=== PATIENT | female | born 1990 | race Two or more races ===

== ENCOUNTER 2024-03-22 01:27 | Emergency (ER) | payer BC, SELFPAY ==
[2024-03-22] VITALS (7 sets, daily range): BP systolic 111–123; BP diastolic 66–79; PULSE 92–116; RESP 14–18; TEMP 36.9–37.3; O2SAT 98–100; BMI 35.6
--- NOTE | 2024-03-22 01:39 | EKG_ITS ---
[facility] Test Date: 2024-03-22 Pat Name: HADLEY LOPEZ Department: Room: - Gender: Female Pension Agent: : 1990 Requested By: Dwight Leigh Order Number: [id number] Reading MD: Dwight Leigh Measurements Intervals Wells Rate: 109 P: 58 VA: 129 QRS: 67 QRSD: 90 T: 14 QT: 325 QTc: 439 Interpretive Statements SINUS TACHYCARDIA POSSIBLE LEFT ATRIAL ENLARGEMENT [-0.1mV P WAVE IN V1/V2] NONSPECIFIC ST & T-WAVE ABNORMALITY ABNORMAL RHYTHM ECG Compared to ECG 05/17/2023 11:30:41 T-wave abnormality now present Sinus rhythm no longer present /store/S0/[id number]/ecg/[id number].pdf
[2024-03-22 02:50] LABS: Collection Type, Urine Clean Catch
[2024-03-22 02:54] LABS: Bilirubin,Urine Negative (Negative); Blood,Urine Negative (Negative); Clarity,Urine Clear (Clear/Hazy); Color,Urine Lt-Yellow (Lt Yel-Yel); Glucose, Urine Negative (Negative); Ketones,Urine Negative (Negative); Leukocyte Esterase,Urine Negative (Negative); Nitrite,Urine Negative (Negative); PH,Urine 6.5 (5.0-7.0); Protein,Urine Negative (Neg - Trace); RBC,Urine 1 /hpf (0-3); Specific Gravity,Urine 1.012 (1.001-1.035); Squamous Epithelial Cell,Urine < 1 /hpf (0-5); Urobilinogen,Urine Negative mg/dL (0.0-1.0); WBC,Urine 1 /hpf (0-5)
[2024-03-22 03:01] LABS: Amphetamine/Methamp Scrn,U Negative (Negative); Barbiturate Screen,Urine Negative (Negative); Benzodiazepines Screen,Urine Negative (Negative); Benzoylecgonine Screen, Ur Negative (Negative); Fentanyl Screen,Urine Negative (Negative); Opiate Screen,Urine Negative (Negative); THC Screen,Urine Negative (Negative)
[2024-03-22 03:02] LABS: Basophils # (Auto) 0.1 Thou/mm3 (0.0-0.2); Basophils % (Auto) 0 % (0-2.5); Eosinophils # (Auto) 0.2 Thou/mm3 (0.0-0.5); Eosinophils % (Auto) 1 % (0-10); Hematocrit 36.3 % (36.0-46.0); Hemoglobin 12.4 g/dL (12.0-16.0); Immature Granulocytes % (Auto) 1 % (0-0); Lymphocytes % (Auto) 21 % (10-50); Mean Corpuscular HGB Conc 34.2 g/dl (31.0-37.0); Mean Corpuscular Hemoglobin 29.2 pg (25.0-35.0); Mean Corpuscular Volume 85 fL (80-100); Monocytes # (Auto) 0.8 Thou/mm3 (0.0-0.8); Monocytes % (Auto) 6 % (0-12); Neutrophils # (Auto) 10.2 Thou/mm3 (1.8-7.7); Neutrophils % (Auto) 71 % (37-80); Nucleated Red Blood Cell % 0 /100 WBC (0); Platelet Count 229 Thou/mm3 (140-440); Red Blood Count 4.25 Miln/mm3 (4.00-5.20); White Blood Count 14.3 Thou/mm3 (3.6-11.0)
[2024-03-22 03:22] LABS: Alanine Aminotransferase 12 U/L (10-49); Albumin, Serum 4.4 gm/dL (3.5-5.0); Albumin/Globulin Ratio 1.6 (1.2-2.2); Alkaline Phosphatase 73 U/L (46-116); Anion Gap 11 (7-16); Aspartate Amino Transferase 15 U/L (0-34); BUN/Creatinine Ratio 14 Ratio (12-20); Bilirubin,Total 0.3 mg/dL (0.3-1.2); Blood Urea Nitrogen 13 mg/dL (9-23); Calcium 9.8 mg/dL (8.3-10.6); Calcium (Corrected) 9.8 mg/dL (8.5-10.1); Carbon Dioxide 22.1 mMol/L (20.0-31.0); Chloride 106 mMol/L (98-107); Creatinine (Component) 0.9 mg/dL (0.6-1.3); Estimated Creatinine Clearance 92.7 mL/min (>60); Globulin 2.7 gm/dL (2.3-3.5); Glucose 103 mg/dL (74-106); Osmolality,Calculated 277 (275-295); Potassium 3.6 mMol/L (3.4-5.1); Sodium 139 mMol/L (136-145); Total Protein 7.1 gm/dL (5.7-8.2); Troponin I < 0.002 ng/mL (0.0-0.045); eGFR > 60 See Note
--- NOTE | 2024-03-22 03:41 | PD.EDRME ---
Rapid Medical Screening Exam RME Arrival date/time: 03/22/24 01:27 33F with no significant PMH presents to ED with several hours of weakness/fatigue and HR going to 170s w/o trigger. Patient is currently 6 weeks , but denies ab pain and vaginal bleeding, as well as anxiety/panic attacks and drug/alcohol use. Chief Complaint: Anxiety Time Seen by Provider: 03/22/24 02:30 Vital signs: Vital Signs Temperature 98.5 F 03/22/24 01:29 Pulse Rate 116 H 03/22/24 01:29 Respiratory Rate 17 03/22/24 01:29 Blood Pressure 112/66 03/22/24 01:29 Pulse Oximetry (%) 100 03/22/24 01:29 Oxygen Delivery Method Room Air 03/22/24 01:29
[2024-03-22 06:52] LABS: Troponin I < 0.002 ng/mL (0.0-0.045)
--- NOTE | 2024-03-22 07:04 | PD.EDARRY ---
ED Arrhythmia Palp. RME/HPI General Chief Complaint: Anxiety Stated Complaint: ANXIETY/WEAKNESS Time Seen by Provider: 03/22/24 02:30 Arrival date/time: 03/22/24 01:27 RME / HPI RME / HPI narrative: 03/22/24 01:27 33F with no significant PMH presents to ED with several hours of weakness/fatigue and HR going to 170s w/o trigger. Patient is currently 6 weeks , but denies ab pain and vaginal bleeding, as well as anxiety/panic attacks and drug/alcohol use. This section includes all my notes and documentations, including HPI, PE, MDM, Procedure Notes, and PLAN. 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 States yesterday she was feeling very fatigued, winded , and unwell . Last night was in and out of sleep. This morning woke up with a pounding sensation in her chest and per her apple watch, her heart rate was 170's which prompted her to call 911. State when medics arrived her heart rate had improved. Patient additionally reports abdominal cramping, on/off over the last several weeks. Denies vaginal bleeding. No other complaints. LMP 02/11/24 ROS: Respiratory: negative except as documented in HPI. Gastrointestinal: negative except as documented in HPI. Genitourinary: negative except as documented in HPI. Musculoskeletal: negative except as documented in HPI. Skin: negative except as documented in HPI. Neurological: negative except as documented in HPI. Physical Exam: General: Alert and oriented. No acute distress. Eyes: Conjunctivae and lids clear. ENT: No nasal congestion. Neck: Supple. Heart: RRR. Lungs: No respiratory distress. Good air movement. No rhonchi, wheezing, rales. Abdomen: Soft and nontender. Normal bowel sounds. No distension. No rebound or guarding. Back: No CVA tenderness. Skin: Warm and dry. Neuro: Alert and oriented X 3. I reviewed EMS notes. I reviewed all diagnostic test results. My interpretation of the EKG is sinus rhythm with nonspecific ST-T changes. My review of the ultrasound report is no obvious IUP. Blood tests and urine tests unremarkable. At this point, diagnoses include palpitations and threatened AB. Recommended expectant management and recheck with PCP. Based on my best medical judgment, made decision no further evaluation or treatment indicated at this time. Patient understands and agrees to the discharge instructions customized and printed, see below. Discharge Instructions from Dr. Rao: 1.? ? ? After extensive evaluation, the exact cause of your palpitation was not determined. But there is no emergency, such as heart attack or electrolyte abnormalities or thyroid problem. 2.? ? ? Based on your last menstruation of 02/11/24, today's gestational age is 5 5/7 weeks. But the ultrasound didn't show a in the uterus. You may be too early for the ultrasound to show the . Or you may be having a miscarriage. 3.? ? ? Only time will determine whether you will have a successful or you will have a miscarriage.? If your symptoms worsen and start bleeding, you may have a miscarriage.? If you have a miscarriage, unfortunately we won?t be able to save the baby because it?s too early.? Under 20 weeks, unfortunately we can?t help.?? 4.? ? ? See a private doctor on 03/25/24.? No sexual activity until cleared by a doctor taking care of you.?? Ask to repeat hCG. This doubles every 2 to 3 days in normal . Your level today was 5977. Ask to repeat ultrasound in 2 weeks. 5.? ? ? Seek immediate medical care for severe bleeding (soaking more than 3 pads per hour), intolerable pain, or with any concerns.? Russel Rao MD Related Data Previous Rx's ?Medication ?Instructions ?Recorded acetaminophen 500 mg tablet 1,000 mg (2 x 500 mg) PO Q6H PRN 04/10/22 (Tylenol Extra Strength) fever or pain #30 tabs pantoprazole 40 mg granules 40 mg PO QDAY #14 ea 07/24/22 delayed-release for susp in packet (Protonix) meloxicam 7.5 mg tablet 7.5 mg PO QDAY #14 tabs 05/17/23 Allergies Allergy/AdvReac Type Severity Reaction Status Date / Time No Known Allergies Allergy Verified 03/22/24 01:37 Review of Systems Review of Systems Systems Reviewed: All systems reviewed, normal except as documented Past Medical History Past Medical History NEUROLOGIC: Positive Neurological Disorders GENITOURINARY: Positive Genitourinary Disorders, Renal Disease and Kidney Stones REPRODUCTIVE: Positive Previous Pregnancies MUSCULOSKELETAL: Positive Fibromyalgia PSYCHO/SOCIAL: Positive Psychiatric Problems and Anxiety OTHER HISTORY: Positive Chicken Pox Family History FAMILY HISTORY: Positive Family Cardiac Disorders Surgical History SURGICAL: Positive Abdominal Surgery; Negative Section Social History SMOKING STATUS: Never smoker SECOND HAND EXPOSURE: No SUBSTANCE USE: does not use ED Exam Narrative Physical exam: As noted in HPI Course Quality Measures none Orders Category Date Time Status EKG (ED ONLY) *Do not use* NOW Care 03/22/24 01:39 Completed EKG (ED Only) Stat Exams 03/22/24 01:39 Draft US OB <= 14 weeks fetus Stat Exams 03/22/24 07:03 Ordered CBC Stat Lab 03/22/24 02:34 Completed CMP [Comprehensive Metabolic Panel] Stat Lab 03/22/24 02:34 Completed Drug Screen,Urine Stat Lab 03/22/24 02:40 Completed Magnesium Stat Lab 03/22/24 07:03 Ordered TSH [Thyroid Stimulating Hormone] Stat Lab 03/22/24 07:03 Ordered Troponin I Stat Lab 03/22/24 02:34 Completed Troponin I Stat Lab 03/22/24 06:10 Completed Troponin I Stat Lab 03/22/24 07:03 Ordered Urinalysis Stat Lab 03/22/24 02:40 Completed Urine Culture Stat Lab 03/22/24 02:40 Stop Req Vital Signs Vital signs: Vital Signs Temperature 98.5 F 03/22/24 01:29 Pulse Rate 116 H 03/22/24 01:29 Respiratory Rate 17 03/22/24 01:29 Blood Pressure 112/66 03/22/24 01:29 Pulse Oximetry (%) 100 03/22/24 01:29 Oxygen Delivery Method Room Air 03/22/24 01:29 Arrhythmia/Palpitations MDM Narrative MDM Narrative:: Cailin Gan am scribing for and in the presence of Dr. Rao. Patient data External records reviewed:: [facility] previous records (I reviewed ED visit on 05/17/2023) and EMS form Clinical information provided by:: patient Social determinants that could affect healthcare access:: none Patient has the following chronic illnesses:: Previous pregnancies How is presenting disease/condition affected by chronic disease/condition?: uneffected by Evaluation data The following diagnostics were reviewed and interpreted by me:: lab results and EKG tracing(s) Lab and/or radiology exams considered but not ordered:: None Interpretation Summary: Ordering Physician: Russel Rao MD Date of Service: 03/22/24 Procedure(s): US OB <= 14 weeks fetus Accession Number(s): [id number] cc: Russel Rao MD; Duy Ann MD; Piero Kearney MD~ Examination: Complete OB ultrasound, less than 14 weeks, transabdominal Date and time of exam: March 22, 2024 0837 hours INDICATIONS: Increasing maternal heart rate today Technique: Obstetrical ultrasound images less than 14 weeks performed via transabdominal imaging Findings: Uterus 10.5 x 5.8 x 7.3 cm No uterine mass or intrauterine gestation Endometrial stripe 0.8 cm Right ovary 3.7 x 2.6 x 3.3 cm arterial flow Left ovary 3.9 x 2.8 x 2.9 cm arterial flow IMPRESSION: No uterine mass or intrauterine gestation Dictated By: Duy Ann MD Signed By: <Electronically signed by Duy Ann MD in OV> 03/22/24 0915 Medications / Prescriptions Medications or Prescriptions considered but not ordered:: None Medication administrations:: None Consultations Consultation(s) initiated? (list below): No Diagnosis Differential diagnosis arrhythmia/palpitations: palpitations, anxiety, sinus tachycardia, artial fibrillation, artial flutter, ventricular premature beats, supraventricular tachycardia and ventricular tachycardia Most likely diagnosis given after review of the tests above:: Heart palpitations Admission Indicated Admission indicated?: not indicated Explain why admission is indicated or not indicated:: Does not meet admission criteria. Admission Request Was there a request for admission?: No Disposition Plan Disposition Plan: Discharge Discharge Attestation Discharge Attestation: The patient and all family members were given an opportunity to ask questions and understood the discharge instructions. Discharge instructions specifically effects, indications for sooner follow up or return to the emergency department, and the expected course of current diagnosis. Patient condition: Stable Discharge Plan Plan Patient Disposition: HOME (Self Care) Prescriptions/Referrals Prescriptions/Med Rec: No Action pantoprazole [Protonix] [address] for susp in packet 40 mg PO QDAY Qty: 14 0RF meloxicam 7.5 mg tablet 7.5 mg PO QDAY Qty: 14 0RF acetaminophen [Tylenol Extra Strength] 500 mg tablet 1,000 mg PO Q6H PRN (Reason: fever or pain) Qty: 30 0RF Referrals: Piero Kearney MD [Primary Care Provider] - In 1 week Problem List Clinical Impression: , Heart palpitations Patient/Caregiver Discharge Instructions Discharge Activity: activity as tolerated Education Materials: ED Possible Miscarriage ..., ED Palpitations Additional Instructions: Discharge Instructions from Dr. Rao: 1.? ? ? After extensive evaluation, the exact cause of your palpitation was not determined. But there is no emergency, such as heart attack or electrolyte abnormalities or thyroid problem. 2.? ? ? Based on your last menstruation of 02/11/24, today's gestational age is 5 5/7 weeks. But the ultrasound didn't show a in the uterus. You may be too early for the ultrasound to show the . Or you may be having a miscarriage. 3.? ? ? Only time will determine whether you will have a successful or you will have a miscarriage.? If your symptoms worsen and start bleeding, you may have a miscarriage.? If you have a miscarriage, unfortunately we won?t be able to save the baby because it?s too early.? Under 20 weeks, unfortunately we can?t help.?? 4.? ? ? See a private doctor on 03/25/24.? No sexual activity until cleared by a doctor taking care of you.?? Ask to repeat hCG. This doubles every 2 to 3 days in normal . Your level today was 5977. Ask to repeat ultrasound in 2 weeks. 5.? ? ? Seek immediate medical care for severe bleeding (soaking more than 3 pads per hour), intolerable pain, or with any concerns.? Print Language: Khmer Stand Alone Forms: Tara Award Info., Patient Portal Info Letter
[2024-03-22 07:39] LABS: Magnesium 1.9 mg/dL (1.6-2.6); Thyroid Stimulating Hormone 1.49 uIU/mL (0.55-4.78)
--- NOTE | 2024-03-22 07:54 | PC.NURSE ---
Provided po fluids for patient to fill bladder for Ultrasound.
--- NOTE | 2024-03-22 08:36 | PC.NURSE ---
Patient to Ultrasound via wheelchair.
[2024-03-22 10:23] LABS: Beta HCG,Quantitative 5977 mIU/mL (<5.0)
== END 2024-03-22 11:07 | disposition home or self-care (01) ==
PROVIDERS: Physician Assistant; Emergency Provider Emergency Medicine; PCP Family Medicine
DX: O26.891 Other specified pregnancy related conditions, first trimester (principal); R00.2 Palpitations; R00.0 Tachycardia, unspecified; Z3A.01 Less than 8 weeks gestation of pregnancy
CPT/HCPCS: 36415; 76801; 80053; 80307; 81001; 83735; 84443; 84484; 84702; 85025; 87086; 93005; 99284

== ENCOUNTER → 2024-04-20 | Outpatient (CLI) | payer BC, SELFPAY ==
[2024-04-20 15:43] LABS: BVAG Candida Negative (Negative); Bacterial Vaginosis Markers Negative (Negative); Candida glabrata Negative (Negative); Candida krusei PCR Negative (Negative); Trichomonas Negative (Negative)
== END | disposition home or self-care (01) ==
LOC: SLDO 11:16
PROVIDERS: Referring Provider Specialist; Visit Provider Specialist
DX: B37.89 Other sites of candidiasis (principal); N76.0 Acute vaginitis; A59.01 Trichomonal vulvovaginitis
CPT/HCPCS: 81514

== ENCOUNTER → 2024-04-24 | Outpatient (CLI) | payer BC, SELFPAY ==
[2024-04-24 15:00] LABS: Basophils # (Auto) 0.1 Thou/mm3 (0.0-0.2); Basophils % (Auto) 0 % (0-2.5); Eosinophils # (Auto) 0.1 Thou/mm3 (0.0-0.5); Eosinophils % (Auto) 1 % (0-10); Hematocrit 35.8 % (36.0-46.0); Hemoglobin 12.1 g/dL (12.0-16.0); Immature Granulocytes % (Auto) 1 % (0-0); Immature Granulocytes Auto 0.07 Thou/mm3 (0.00-0.00); Lymphocytes # (Auto) 2.3 Thou/mm3 (1.0-4.8); Lymphocytes % (Auto) 18 % (10-50); Mean Corpuscular HGB Conc 33.8 g/dl (31.0-37.0); Mean Corpuscular Hemoglobin 29.2 pg (25.0-35.0); Mean Corpuscular Volume 87 fL (80-100); Monocytes # (Auto) 0.7 Thou/mm3 (0.0-0.8); Monocytes % (Auto) 6 % (0-12); Neutrophils # (Auto) 9.6 Thou/mm3 (1.8-7.7); Neutrophils % (Auto) 75 % (37-80); Nucleated Red Blood Cell % 0 /100 WBC (0); Platelet Count 269 Thou/mm3 (140-440); RDW Standard Deviation 40.9 fL (36.4-46.3); Red Blood Count 4.14 Miln/mm3 (4.00-5.20); White Blood Count 12.8 Thou/mm3 (3.6-11.0)
[2024-04-24 15:12] LABS: Glucose Estimated Average 94 mg/dL (80-131); Hemoglobin A1C 4.9 % Hgb (4.8-6.0)
[2024-04-24 15:42] LABS: HIV (1&2) Antibody Rapid Non-Reactive
[2024-04-24 18:27] LABS: Creatinine (Component) 0.6 mg/dL (0.6-1.3); Glucose 84 mg/dL (74-106); eGFR > 60 See Note
[2024-04-24 18:43] LABS: Hepatitis B Surface Antigen Non Reactive (Non React); Rubella, IgG Antibody Reactive (Immune)
[2024-04-24 19:05] LABS: Beta HCG,Quantitative 91934 mIU/mL (<5.0)
[2024-04-27 17:51] LABS: HCV RNA, PCR <15 NOT DETECTED IU/mL
[2024-04-28 07:04] LABS: HCV RNA, PCR Log IU <1.18 NOT DETECTED Log IU/mL
== END | disposition home or self-care (01) ==
LOC: COPL 13:54
PROVIDERS: PCP Physician Assistant; Referring Provider Specialist; Visit Provider Specialist
DX: Z34.81 Encounter for supervision of other normal pregnancy, first trimester (principal)
CPT/HCPCS: 36415; 81220; 82565; 82947; 83036; 84702; 85025; 86703; 86762; 86850; 86900; 86901; 87340; 87522

== ENCOUNTER → 2024-04-24 | Outpatient (CLI) | payer BC, SELFPAY ==
[2024-04-24 17:00] LABS: Collection Type, Urine Clean Catch; WBC,Urine 0 /hpf (0-5)
[2024-04-24 17:44] LABS: Bacteria,Urine Rare; Bilirubin,Urine Negative (Negative); Blood,Urine Negative (Negative); Clarity,Urine Clear (Clear/Hazy); Color,Urine Colorless (Lt Yel-Yel); Glucose, Urine Negative (Negative); Ketones,Urine Negative (Negative); Leukocyte Esterase,Urine Negative (Negative); Nitrite,Urine Negative (Negative); PH,Urine 6.5 (5.0-7.0); Protein,Urine Negative (Neg - Trace); RBC,Urine < 1 /hpf (0-3); Specific Gravity,Urine 1.008 (1.001-1.035); Squamous Epithelial Cell,Urine < 1 /hpf (0-5); Urobilinogen,Urine Negative mg/dL (0.0-1.0)
[2024-04-24 17:55] LABS: Amphetamine/Methamp Scrn,U Negative (Negative); Barbiturate Screen,Urine Negative (Negative); Benzodiazepines Screen,Urine Negative (Negative); Benzoylecgonine Screen, Ur Negative (Negative); Fentanyl Screen,Urine Negative (Negative); Opiate Screen,Urine Negative (Negative); THC Screen,Urine Negative (Negative)
== END | disposition home or self-care (01) ==
LOC: SLDO 16:49
PROVIDERS: Referring Provider Specialist; Visit Provider Specialist
DX: Z34.81 Encounter for supervision of other normal pregnancy, first trimester (principal)
CPT/HCPCS: 80307; 81001; 87086

== ENCOUNTER → 2024-04-26 | Outpatient (CLI) | payer BC, SELFPAY ==
[2024-04-26 07:50] LABS: Quantiferon-TB* See Sep Rpt
== END | disposition home or self-care (01) ==
PROVIDERS: Referring Provider Specialist; Visit Provider Specialist
DX: Z34.81 Encounter for supervision of other normal pregnancy, first trimester (principal)
CPT/HCPCS: 86480

== ENCOUNTER → 2024-06-12 | Outpatient (CLI) | payer BC, SELFPAY ==
[2024-06-12 10:26] LABS: Basophils # (Auto) 0.1 Thou/mm3 (0.0-0.2); Basophils % (Auto) 0 % (0-2.5); Eosinophils # (Auto) 0.1 Thou/mm3 (0.0-0.5); Eosinophils % (Auto) 1 % (0-10); Hematocrit 32.8 % (36.0-46.0); Hemoglobin 11.1 g/dL (12.0-16.0); Immature Granulocytes % (Auto) 1 % (0-0); Immature Granulocytes Auto 0.14 Thou/mm3 (0.00-0.00); Lymphocytes # (Auto) 2.1 Thou/mm3 (1.0-4.8); Lymphocytes % (Auto) 18 % (10-50); Mean Corpuscular HGB Conc 33.8 g/dl (31.0-37.0); Mean Corpuscular Hemoglobin 29.2 pg (25.0-35.0); Mean Corpuscular Volume 86 fL (80-100); Monocytes # (Auto) 0.7 Thou/mm3 (0.0-0.8); Monocytes % (Auto) 6 % (0-12); Neutrophils % (Auto) 74 % (37-80); Nucleated Red Blood Cell % 0 /100 WBC (0); Platelet Count 265 Thou/mm3 (140-440); White Blood Count 12.1 Thou/mm3 (3.6-11.0)
[2024-06-12 10:56] LABS: Alanine Aminotransferase 13 U/L (10-49); Albumin, Serum 4.2 gm/dL (3.5-5.0); Albumin/Globulin Ratio 2.1 (1.2-2.2); Alkaline Phosphatase 58 U/L (46-116); Anion Gap 9 (7-16); Aspartate Amino Transferase 13 U/L (0-34); BUN/Creatinine Ratio 24 Ratio (12-20); Bilirubin,Total 0.3 mg/dL (0.3-1.2); Blood Urea Nitrogen 12 mg/dL (9-23); Calcium 9.3 mg/dL (8.3-10.6); Calcium (Corrected) 9.3 mg/dL (8.5-10.1); Carbon Dioxide 23.3 mMol/L (20.0-31.0); Chloride 107 mMol/L (98-107); Creatinine (Component) 0.5 mg/dL (0.6-1.3); Glucose 91 mg/dL (74-106); Osmolality,Calculated 277 (275-295); Potassium 4.6 mMol/L (3.4-5.1); Sodium 139 mMol/L (136-145); Total Protein 6.2 gm/dL (5.7-8.2); eGFR > 60 See Note
[2024-06-12 11:18] LABS: Folate > 24.00 ng/mL (>5.38); Vitamin B12 332 pg/mL (211-911); Vitamin D 25 Hydroxy Total 15.6 ng/mL (7.3-40.2)
[2024-06-19 07:03] LABS: Vitamin B1 (Thiamine)* 13 nmol/L (8-30)
== END | disposition home or self-care (01) ==
PROVIDERS: Referring Provider Physician Assistant Medical; Visit Provider Physician Assistant Medical
DX: E55.9 Vitamin D deficiency, unspecified (principal); M79.18 Myalgia, other site; R76.8 Other specified abnormal immunological findings in serum
CPT/HCPCS: 36415; 80053; 82306; 82607; 82746; 84425; 85025

== ENCOUNTER → 2024-06-14 | Outpatient (CLI) | payer BC, SELFPAY ==
[2024-06-14 10:37] LABS: Basophils % (Auto) 0 % (0-2.5); Eosinophils # (Auto) 0.1 Thou/mm3 (0.0-0.5); Eosinophils % (Auto) 1 % (0-10); Hematocrit 33.5 % (36.0-46.0); Hemoglobin 11.4 g/dL (12.0-16.0); Immature Granulocytes % (Auto) 1 % (0-0); Immature Granulocytes Auto 0.13 Thou/mm3 (0.00-0.00); Lymphocytes # (Auto) 2.1 Thou/mm3 (1.0-4.8); Lymphocytes % (Auto) 19 % (10-50); Mean Corpuscular Hemoglobin 29.2 pg (25.0-35.0); Mean Corpuscular Volume 86 fL (80-100); Monocytes # (Auto) 0.6 Thou/mm3 (0.0-0.8); Monocytes % (Auto) 5 % (0-12); Neutrophils # (Auto) 8.4 Thou/mm3 (1.8-7.7); Neutrophils % (Auto) 74 % (37-80); Nucleated Red Blood Cell % 0 /100 WBC (0); Platelet Count 271 Thou/mm3 (140-440); RDW Standard Deviation 41.9 fL (36.4-46.3); Red Blood Count 3.91 Miln/mm3 (4.00-5.20); White Blood Count 11.4 Thou/mm3 (3.6-11.0)
[2024-06-14 11:25] LABS: Alanine Aminotransferase 11 U/L (10-49); Albumin, Serum 3.9 gm/dL (3.5-5.0); Alkaline Phosphatase 55 U/L (46-116); Anion Gap 10 (7-16); Aspartate Amino Transferase 12 U/L (0-34); BUN/Creatinine Ratio 13 Ratio (12-20); Bilirubin,Direct < 0.1 mg/dL (0.0-0.3); Bilirubin,Total 0.3 mg/dL (0.3-1.2); Blood Urea Nitrogen 8 mg/dL (9-23); Calcium 9.1 mg/dL (8.3-10.6); Carbon Dioxide 23.1 mMol/L (20.0-31.0); Chloride 107 mMol/L (98-107); Cholesterol 176 mg/dL (132-200); Creatinine (Component) 0.6 mg/dL (0.6-1.3); Glucose 89 mg/dL (74-106); HDL Cholesterol 86 mg/dL (40-60); LDL Cholesterol,Calculated 65 mg/dL (0-130); Osmolality,Calculated 276 (275-295); Potassium 4.7 mMol/L (3.4-5.1); Sodium 140 mMol/L (136-145); Thyroid Stimulating Hormone 0.81 uIU/mL (0.55-4.78); Triglycerides 124 mg/dL (30-150); eGFR > 60 See Note
== END | disposition home or self-care (01) ==
LOC: COPL 09:48
PROVIDERS: PCP Internal Medicine; Referring Provider Internal Medicine Cardiovascular Disease; Visit Provider Internal Medicine Cardiovascular Disease
DX: I10 Essential (primary) hypertension (principal); E78.2 Mixed hyperlipidemia; I49.9 Cardiac arrhythmia, unspecified
CPT/HCPCS: 36415; 80048; 80061; 80076; 84439; 84443; 85025

== ENCOUNTER → 2024-07-31 | Outpatient (CLI) | payer BC, SELFPAY ==
[2024-07-31 12:09] LABS: Basophils % (Auto) 0 % (0-2.5); Eosinophils # (Auto) 0.1 Thou/mm3 (0.0-0.5); Eosinophils % (Auto) 1 % (0-10); Hematocrit 32.7 % (36.0-46.0); Hemoglobin 10.9 g/dL (12.0-16.0); Immature Granulocytes % (Auto) 1 % (0-0); Immature Granulocytes Auto 0.12 Thou/mm3 (0.00-0.00); Lymphocytes # (Auto) 1.8 Thou/mm3 (1.0-4.8); Lymphocytes % (Auto) 15 % (10-50); Mean Corpuscular HGB Conc 33.3 g/dl (31.0-37.0); Mean Corpuscular Hemoglobin 28.6 pg (25.0-35.0); Mean Corpuscular Volume 86 fL (80-100); Monocytes # (Auto) 0.7 Thou/mm3 (0.0-0.8); Monocytes % (Auto) 6 % (0-12); Neutrophils # (Auto) 9.3 Thou/mm3 (1.8-7.7); Neutrophils % (Auto) 77 % (37-80); Nucleated Red Blood Cell % 0 /100 WBC (0); Platelet Count 311 Thou/mm3 (140-440); RDW Standard Deviation 42.4 fL (36.4-46.3); Red Blood Count 3.81 Miln/mm3 (4.00-5.20)
[2024-07-31 12:13] LABS: Folate 21.88 ng/mL (>5.38); Vitamin B12 302 pg/mL (211-911)
[2024-07-31 12:22] LABS: Ferritin 20 ng/mL (7.3-270.7); Iron 61 mcg/dL (50-170); Total Iron Binding Capacity 359 mcg/dL (250-425)
== END | disposition home or self-care (01) ==
LOC: COPL 09:58
PROVIDERS: PCP Family Medicine; Referring Provider Physician Assistant Medical; Visit Provider Physician Assistant Medical
DX: R00.0 Tachycardia, unspecified (principal)
CPT/HCPCS: 36415; 82607; 82728; 82746; 83540; 83550; 85025

== ENCOUNTER → 2024-08-18 | Outpatient (CLI) | payer BC, SELFPAY ==
[2024-08-18 15:39] LABS: Glucose,1 Hour PP 50gm Dose 148 mg/dL (80-140)
== END | disposition home or self-care (01) ==
LOC: SLDO 14:32
PROVIDERS: Referring Provider Physician Assistant Medical; Visit Provider Physician Assistant Medical
DX: Z34.82 Encounter for supervision of other normal pregnancy, second trimester (principal)
CPT/HCPCS: 36415; 82950

== ENCOUNTER → 2024-08-22 | Outpatient (CLI) | payer BC, SELFPAY ==
[2024-08-22 16:53] LABS: Glucose,Fasting Gestational 81 mg/dL (70-120)
[2024-08-22 16:54] LABS: Glucose 1 Hour, Gest 122 mg/dL (50-190)
[2024-08-22 16:54] LABS: Glucose 2 Hour,Gest 85 mg/dL (50-165)
[2024-08-22 16:54] LABS: Glucose 3 Hour, Gest 110 mg/dL (50-145)
== END | disposition home or self-care (01) ==
LOC: SLDO 14:23
PROVIDERS: Referring Provider Physician Assistant Medical; Visit Provider Physician Assistant Medical
DX: O99.810 Abnormal glucose complicating pregnancy (principal)
CPT/HCPCS: 36415; 82951; 82952

== ENCOUNTER → 2024-09-15 | Outpatient (CLI) | payer BC, SELFPAY ==
[2024-09-15 14:50] LABS: Basophils % (Auto) 0 % (0-2.5); Eosinophils # (Auto) 0.1 Thou/mm3 (0.0-0.5); Eosinophils % (Auto) 1 % (0-10); Hematocrit 32.5 % (36.0-46.0); Hemoglobin 10.9 g/dL (12.0-16.0); Immature Granulocytes % (Auto) 2 % (0-0); Immature Granulocytes Auto 0.19 Thou/mm3 (0.00-0.00); Lymphocytes # (Auto) 1.9 Thou/mm3 (1.0-4.8); Lymphocytes % (Auto) 17 % (10-50); Mean Corpuscular HGB Conc 33.5 g/dl (31.0-37.0); Mean Corpuscular Hemoglobin 28.7 pg (25.0-35.0); Mean Corpuscular Volume 86 fL (80-100); Monocytes # (Auto) 0.6 Thou/mm3 (0.0-0.8); Monocytes % (Auto) 5 % (0-12); Neutrophils # (Auto) 8.5 Thou/mm3 (1.8-7.7); Neutrophils % (Auto) 76 % (37-80); Nucleated Red Blood Cell % 0 /100 WBC (0); Platelet Count 255 Thou/mm3 (140-440); White Blood Count 11.2 Thou/mm3 (3.6-11.0)
[2024-09-15 15:21] LABS: Syphilis Nonreactive (Nonreactive)
== END | disposition home or self-care (01) ==
LOC: SLDO 14:12
PROVIDERS: Referring Provider Specialist; Visit Provider Specialist
DX: Z34.83 Encounter for supervision of other normal pregnancy, third trimester (principal)
CPT/HCPCS: 36415; 85025; 86780

== ENCOUNTER 2024-09-27 13:20 | Observation (INO) | payer BC, SELFPAY ==
[2024-09-27] VITALS (15 sets, daily range): BP systolic 106–111; BP diastolic 59–62; PULSE 88–117; RESP 16–97; TEMP 36.7; O2SAT 95–98; BMI 37.3
[2024-09-27 14:45] LABS: Collection Type, Urine Clean Catch
[2024-09-27 14:50] LABS: Bilirubin,Urine Negative (Negative); Blood,Urine Negative (Negative); Clarity,Urine Clear (Clear/Hazy); Color,Urine Colorless (Lt Yel-Yel); Glucose, Urine Negative (Negative); Ketones,Urine Negative (Negative); Leukocyte Esterase,Urine Negative (Negative); Nitrite,Urine Negative (Negative); PH,Urine 6.5 (5.0-7.0); Protein,Urine Negative (Neg - Trace); RBC,Urine < 1 /hpf (0-3); Specific Gravity,Urine 1.007 (1.001-1.035); Squamous Epithelial Cell,Urine < 1 /hpf (0-5); Urobilinogen,Urine Negative mg/dL (0.0-1.0); WBC,Urine 1 /hpf (0-5)
[2024-09-27 15:12] LABS: FFN Specimen Descripton Clr Colrless Aqueous; Fetal Fibronectin Negative (Negative)
== END 2024-09-27 15:40 | disposition home or self-care (01) ==
PROVIDERS: Admitting Provider Obstetrics & Gynecology; PCP Internal Medicine; Visit Provider Obstetrics & Gynecology
DX: O26.899 Other specified pregnancy related conditions, unspecified trimester (principal); Z3A.00 Weeks of gestation of pregnancy not specified; R25.2 Cramp and spasm
CPT/HCPCS: 59025; 59899; 81001; 82731; 83615

== ENCOUNTER → 2024-10-27 | Outpatient (CLI) | payer BC, SELFPAY ==
[2024-10-28 10:20] LABS: BVAG Candida Negative (Negative); Bacterial Vaginosis Markers Negative (Negative); Candida glabrata Negative (Negative); Candida krusei PCR Negative (Negative); Trichomonas Negative (Negative)
== END | disposition home or self-care (01) ==
LOC: SLDO 15:21
PROVIDERS: Referring Provider Specialist; Visit Provider Specialist
DX: Z34.83 Encounter for supervision of other normal pregnancy, third trimester (principal)
CPT/HCPCS: 81514

== ENCOUNTER 2024-11-15 09:29 | Inpatient (IN) | payer BC, SELFPAY ==
[2024-11-15] VITALS (36 sets, daily range): BP systolic 87–140; BP diastolic 55–79; PULSE 68–115; RESP 16–99; TEMP 36.6–37.2; O2SAT 97–100; BMI 38.2; BMI 37.5
[2024-11-15 10:04] LABS: ROM Kit Lot # 58102387; ROM Swab Mixed By: LOPEC2; Rupture of Fetal Membranes Positive (Negative); Swb Mxed in Solvent 1 min? Yes
--- NOTE | 2024-11-15 10:19 | XR_ITS ---
Examination: Complete OB ultrasound greater than 14 weeks Date and time of exam: November 15, 2024 1031 hours INDICATIONS: Labor evaluation, unknown presentation, unknown weight Findings: Viable intrauterine single fetus with single amniotic sac presentation cephalic spine posterior Cardiac motion 147 BPM Placenta anterior grade 3 Umbilical cord insertion seen Amniotic fluid index 3.0 cm Ovaries obscured by bowel gas. Composite estimated gestational age based on BPD, head circumference, abdominal circumference, femur length is 38 weeks 3 days Estimated weight 3427 g. Survey of intracranial anatomy, spinal anatomy, abdominal anatomy, four-chamber heart performed with no abnormalities identified. Impression: Viable intrauterine gestation cephalic presentation Estimated weight 3427 g.
[2024-11-15 12:19] LABS: Basophils # (Auto) 0.1 Thou/mm3 (0.0-0.2); Basophils % (Auto) 0 % (0-2.5); Eosinophils # (Auto) 0.1 Thou/mm3 (0.0-0.5); Eosinophils % (Auto) 0 % (0-10); Hematocrit 38.1 % (36.0-46.0); Hemoglobin 12.7 g/dL (12.0-16.0); Immature Granulocytes Auto 0.19 Thou/mm3 (0.00-0.00); Lymphocytes # (Auto) 2.2 Thou/mm3 (1.0-4.8); Lymphocytes % (Auto) 16 % (10-50); Mean Corpuscular HGB Conc 33.3 g/dl (31.0-37.0); Mean Corpuscular Hemoglobin 28.5 pg (25.0-35.0); Mean Corpuscular Volume 85 fL (80-100); Monocytes # (Auto) 0.7 Thou/mm3 (0.0-0.8); Monocytes % (Auto) 5 % (0-12); Neutrophils # (Auto) 10.5 Thou/mm3 (1.8-7.7); Neutrophils % (Auto) 77 % (37-80); Nucleated Red Blood Cell # 0.00 Thou/mm3 (0.00-0.00); Nucleated Red Blood Cell % 0 /100 WBC (0); Platelet Count 258 Thou/mm3 (140-440); RDW Standard Deviation 45.4 fL (36.4-46.3); Red Blood Count 4.46 Miln/mm3 (4.00-5.20); White Blood Count 13.7 Thou/mm3 (3.6-11.0)
[2024-11-15 12:57] LABS: Syphilis Nonreactive (Nonreactive)
[2024-11-15] MEDS: RINGERS LACTATED 1000 ML 1,000 ML 100 ML IV (17:21)
[2024-11-15] MEDS: OXYTOCIN INJ 10 UNIT/ML VIAL IM (18:20)
[2024-11-15] MEDS: OXYTOCIN in NS 20 units 20 UNIT/1,000 ML BAG 125 UNIT IV (18:20)
--- NOTE | 2024-11-15 18:49 | PD.LDDELS ---
Data (Henry) Data Hx Section: No : 9 Term: 6 : 0 Livin Abortions: Spontaneous & Theraputic: 2 Delivery Data (Henry) Labor Data Initiation of labor: Spontaneous Induction/Augmentation Agent: None ROM date: 11/15/24 ROM time: 08:00 Amniotic membrane rupture type: Spontaneous Amniotic fluid description: Clear Delivery Data EDC: 11/18/24 EDC calculated by:: LMP/early US confirmation Date of arrival to unit: 11/15/24 Time of arrival to unit: 09:29 Onset of labor date: 11/15/24 Onset of labor time: 16:30 Complete dilation date: 11/15/24 Complete dilation time: 18:04 delivery date: 11/15/24 delivery time: 18:16 Gestational age (weeks): 39 Gestational age (days): 4 Placenta delivery date: 11/15/24 Placenta delivery time: 18:25 Stage 1 total time: Labor - Stage 1 Duration 1 hours and 34 minutes Delivered by: Beba ALEMAN Delivery nurse: Manuela Car RN [facility] nurse: Tawanda Rios RN Hospital Sales Representative at delivery: Yes Support person(s) at delivery: FOB and mother in law of patient Other staff at delivery: Tatum Purvis RN Delivery Method Delivery method: Normal Vaginal Delivery Presentation: Vertex position: OA Anesthesia Type Anesthesia Type: None Delivery Room Medications Delivery room medications given: none Placenta Placenta delivery description: Spontaneous (placenta inspected, intact) Cord blood sent to lab: Yes cord blood collection: Cord Blood Type Episiotomy Episiotomy description: None (intact) EBL Estimated blood loss (ml): 350 Umbilical Cord cord description: 3 Vessels Data (Henry) Galva Data order: 1 's gender: Male weight (gms): 3065 g Weight (pounds): 6 lbs and 12.1 ozs 1 minute: 9 5 minutes: 9
[2024-11-15] MEDS: TRANEXAMIC ACID 1,000 MG IVPB 1,000 MG/100 ML BAG 200 MG IV ×2 (18:54→18:55)
[2024-11-15] MEDS: BENZO/LANO/ALOE (Dermoplast) 60 GM CAN 1 SPRAY TOP ×2 (18:54→18:55)
--- NOTE | 2024-11-15 19:32 | ESHP_ITS ---
Documentation for date of: 11/15/24 OB Labor/Induct. HPI History of Present Illness Chief complaint: Ruptured membranes : 9 Para: 6 Term pregnancies: 6 pregnancies: 0 Living children: 6 History of Abortions: Spontaneous and Elective: 2 History of Vaginal deliveries: 6 History of sections: No History of : No Date of last menstrual period: 02/12/24 REJI: 11/18/24 Gestational Age (weeks): 39 Gestational Age (days): 4 Gestational age based on last menstrual period: 39 History of present illness: The patient is a 34-year-old -0-2-6 with all care uncomplicated with Dr Long who presented to labor and delivery with ruptured of membranes earlier today. She was 1 cm dilated on presentation. She broke her bag around 8 this morning and presented to triage about 9:30 in the morning. She was confirmed to be grossly ruptured. The patient desired no augmentation and wanted to try to go into labor on her own. The patient never needed Cytotec or Pitocin and started nichole regularly on her own. At about 5:45 PM she went from 5 cm to 7 cm. She went on to quickly progressed to complete and deliver by about 6:15 PM on 11/15/2024. I admitted the patient but called in Lourdes Yoder CNM for the delivery as I was back in the OR performing a . History of Present Dating criteria: LMP confirmed by 1st trimester US Adequate Care: Yes Ultrasounds: normal mid trimester US Obstetrical complications: other (Grand multiparity) Medical complications: none Labs Maternal Blood Type: O Pos Labs: Positive: Rubella Titre, Negative: RPR, Hepatitis B, HIV, Chlamydia, Gonorrhea and Group Beta Strep and Unknown: Herpes Type 1, Herpes Type 2 and Covid-19 Past Medical History Surgical History SURGICAL: Negative Section Meds Home Medications and Allergies Home Medications ?Medication ?Instructions ?Recorded ?Confirmed ?Type folic acid 1 mg tablet 1 mg PO QDAY 11/15/24 History vitamins with calcium 1 tab PO QDAY 11/15/24 11/15/24 History no.72-iron 27 mg-folic acid 1 mg tablet ( Plus (calcium carbonate)) propranolol 10 mg tablet 10 mg PO BID Heart 11/15/24 11/15/24 History Palpitations/Tachycardia Allergies Allergy/AdvReac Type Severity Reaction Status Date / Time No Known Allergies Allergy Verified 11/15/24 09:35 OB Exam Physical Exam Vital signs: Temp Pulse Resp BP Pulse Ox O2 Del Method 98.5 F 68 16 137/68 H 100 Room Air 11/15/24 19:00 11/15/24 19:29 11/15/24 19:00 11/15/24 19:29 11/15/24 19:00 11/15/24 09:39 Routine Abdominal Exam Abdominal: Present soft Detailed Labor and Delivery Exam Dilation (cm): 1 Effacement (%): 50 Cervix position: posterior station: -3 Consistency: medium Presentation: Vertex Membranes: ruptured Amniotic fluid: clear monitor accelerations: 15x15 monitor decelerations: None long term care administrator variability: Moderate (11-25) Contraction frequency (min): Irregular on presentation Tachysystole: No Contraction intensity: Mild OB Results Labs 11/15/24 11:40 Labs: Short CBC 11/15/24 Range/Units 11:40 WBC 13.7 H (3.6-11.0) Thou/mm3 Hgb 12.7 (12.0-16.0) g/dL Hct 38.1 (36.0-46.0) % Plt Count 258 (140-440) Thou/mm3 OB Assessment & Plan Assessment and Plan (1) Supervision of high risk in third trimester: Status: Acute (2) Grand multiparity with current in labor and delivery in third trimester: Status: Acute Additional Plan Induction method: none Plan: anticipate NVD Additional Plan Comment: Two IV lines and all hemorrhage meds to bedside at delivery for grand multiparity
[2024-11-16 00:20] VITALS: BP 113/68; PULSE 89; RESP 17; TEMP 36.9; O2SAT 98
[2024-11-16 01:20] LABS: Basophils # (Auto) 0.1 Thou/mm3 (0.0-0.2); Basophils % (Auto) 0 % (0-2.5); Eosinophils # (Auto) 0.0 Thou/mm3 (0.0-0.5); Eosinophils % (Auto) 0 % (0-10); Hematocrit 33.0 % (36.0-46.0); Hemoglobin 11.2 g/dL (12.0-16.0); Immature Granulocytes Auto 0.16 Thou/mm3 (0.00-0.00); Lymphocytes # (Auto) 2.7 Thou/mm3 (1.0-4.8); Lymphocytes % (Auto) 16 % (10-50); Mean Corpuscular HGB Conc 33.9 g/dl (31.0-37.0); Mean Corpuscular Hemoglobin 28.7 pg (25.0-35.0); Mean Corpuscular Volume 85 fL (80-100); Monocytes # (Auto) 1.4 Thou/mm3 (0.0-0.8); Monocytes % (Auto) 8 % (0-12); Neutrophils # (Auto) 13.2 Thou/mm3 (1.8-7.7); Neutrophils % (Auto) 75 % (37-80); Nucleated Red Blood Cell # 0.00 Thou/mm3 (0.00-0.00); Nucleated Red Blood Cell % 0 /100 WBC (0); Platelet Count 199 Thou/mm3 (140-440); RDW Standard Deviation 44.6 fL (36.4-46.3); Red Blood Count 3.90 Miln/mm3 (4.00-5.20); White Blood Count 17.5 Thou/mm3 (3.6-11.0)
[2024-11-16 04:03] VITALS: BP 103/66; PULSE 82; RESP 16; TEMP 36.6; O2SAT 98
--- NOTE | 2024-11-16 06:53 | ESPR_ITS ---
RE: HADLEY LOPEZ : 1990 DATE OF SERVICE: 11/16/2024 SUBJECTIVE: day #1, the patient denies any problem or complaint. OBJECTIVE: Vital Signs: Blood pressure 103/66 mmHg, heart rate 82, respirations 16, temperature 97.8, pulse oximetry is 98% on room air. Lungs: Clear to auscultation bilaterally. Heart: Regular rate and rhythm. Abdomen: Fundus is firm. Extremities: Nontender. LABORATORY DATA: Hemoglobin pre-delivery is 12.7, post-delivery is 11.2. ASSESSMENT: day #1, status post spontaneous vaginal delivery. PLAN: Discharge home when baby is cleared. Discharge instructions were given. Follow up in the office in 6 weeks. DT: 06:35:32 TT: 06:52:00 Ref: [id number] - TID: [id number]
[2024-11-16 09:05] VITALS: BP 103/78; PULSE 94; RESP 18; TEMP 36.7
[2024-11-16 12:45] VITALS: BP 95/65; PULSE 89; RESP 16; TEMP 37.2; O2SAT 98
[2024-11-16] MEDS: IBUPROFEN TAB 400 MG TABLET 800 MG PO (12:50)
[2024-11-16 16:27] VITALS: BP 121/80; PULSE 70; RESP 16; TEMP 36.8; O2SAT 97
[2024-11-16] MEDS: ACETAMINOPHEN 325 MG TABLET 650 MG PO (18:38)
== END 2024-11-16 19:00 | disposition home or self-care (01) | DRG 807 ==
LOC: S4SX 18:45 → S4NX 20:17
PROVIDERS: Advanced Practice Midwife; Admitting Provider Obstetrics & Gynecology; Visit Provider Specialist
DX: O80 Encounter for full-term uncomplicated delivery (principal); Z37.0 Single live birth; Z3A.39 39 weeks gestation of pregnancy
CPT/HCPCS: 36415; 59025; 59409; 76805; 84112; 85025; 86780; 86850; 86900; 86901; 86923; J2590; J2795; J3010; J3490; J7120; S0191; A9270

== ENCOUNTER → 2025-01-24 | Outpatient (CLI) | payer BC, SELFPAY ==
[2025-01-24 10:14] LABS: Collection Type, Urine Clean Catch
[2025-01-24 10:53] LABS: Glucose Estimated Average 100 mg/dL (80-131); Hemoglobin A1C 5.1 % Hgb (4.8-6.0)
[2025-01-24 10:56] LABS: Basophils # (Auto) 0.1 Thou/mm3 (0.0-0.2); Basophils % (Auto) 1 % (0-2.5); Eosinophils # (Auto) 0.3 Thou/mm3 (0.0-0.5); Eosinophils % (Auto) 4 % (0-10); Hematocrit 40.2 % (36.0-46.0); Hemoglobin 13.4 g/dL (12.0-16.0); Immature Granulocytes Auto 0.04 Thou/mm3 (0.00-0.00); Lymphocytes # (Auto) 2.7 Thou/mm3 (1.0-4.8); Lymphocytes % (Auto) 35 % (10-50); Mean Corpuscular HGB Conc 33.3 g/dl (31.0-37.0); Mean Corpuscular Hemoglobin 28.5 pg (25.0-35.0); Mean Corpuscular Volume 86 fL (80-100); Monocytes # (Auto) 0.4 Thou/mm3 (0.0-0.8); Monocytes % (Auto) 6 % (0-12); Neutrophils # (Auto) 4.1 Thou/mm3 (1.8-7.7); Neutrophils % (Auto) 54 % (37-80); Nucleated Red Blood Cell # 0.00 Thou/mm3 (0.00-0.00); Nucleated Red Blood Cell % 0 /100 WBC (0); Platelet Count 245 Thou/mm3 (140-440); RDW Standard Deviation 43.7 fL (36.4-46.3); Red Blood Count 4.70 Miln/mm3 (4.00-5.20); White Blood Count 7.6 Thou/mm3 (3.6-11.0)
[2025-01-24 11:03] LABS: Vitamin B12 636 pg/mL (211-911); Vitamin D 25 Hydroxy Total 23.6 ng/mL (7.3-40.2)
[2025-01-24 11:05] LABS: Alanine Aminotransferase 12 U/L (10-49); Albumin, Serum 4.5 gm/dL (3.5-5.0); Albumin/Globulin Ratio 1.9 (1.2-2.2); Alkaline Phosphatase 103 U/L (46-116); Anion Gap 10 (7-16); Aspartate Amino Transferase 16 U/L (0-34); BUN/Creatinine Ratio 16 Ratio (12-20); Bilirubin,Total 0.6 mg/dL (0.3-1.2); Blood Urea Nitrogen 11 mg/dL (9-23); Calcium 9.3 mg/dL (8.3-10.6); Calcium (Corrected) 9.3 mg/dL (8.5-10.1); Carbon Dioxide 26.0 mMol/L (20.0-31.0); Cardiac Risk Estimate 2.6 RATIO (3.7-5.6); Chloride 105 mMol/L (98-107); Cholesterol 196 mg/dL (132-200); Creatinine (Component) 0.7 mg/dL (0.6-1.3); Globulin 2.4 gm/dL (2.3-3.5); Glucose 86 mg/dL (74-106); HDL Cholesterol 75 mg/dL (40-60); LDL Cholesterol,Calculated 111 mg/dL (0-130); Osmolality,Calculated 279 (275-295); Potassium 4.1 mMol/L (3.4-5.1); Sodium 141 mMol/L (136-145); Thyroid Stimulating Hormone 0.89 uIU/mL (0.55-4.78); Total Protein 6.9 gm/dL (5.7-8.2); Triglycerides 50 mg/dL (30-150); Uric Acid 5.7 mg/dL (3.1-7.8); eGFR > 60 See Note
[2025-01-24 11:12] LABS: Bilirubin,Urine Negative (Negative); Blood,Urine Negative (Negative); Clarity,Urine Clear (Clear/Hazy); Color,Urine Lt-Yellow (Lt Yel-Yel); Glucose, Urine Negative (Negative); Ketones,Urine Negative (Negative); Leukocyte Esterase,Urine Negative (Negative); Nitrite,Urine Negative (Negative); PH,Urine 6.0 (5.0-7.0); Protein,Urine Negative (Neg - Trace); RBC,Urine < 1 /hpf (0-3); Specific Gravity,Urine 1.019 (1.001-1.035); Squamous Epithelial Cell,Urine < 1 /hpf (0-5); Urobilinogen,Urine Negative mg/dL (0.0-1.0); WBC,Urine < 1 /hpf (0-5)
== END | disposition home or self-care (01) ==
LOC: COPL 09:37
PROVIDERS: PCP Internal Medicine; Referring Provider Internal Medicine; Visit Provider Internal Medicine
DX: Z00.00 Encounter for general adult medical examination without abnormal findings (principal)
CPT/HCPCS: 36415; 80053; 80061; 81001; 82306; 82607; 83036; 84443; 84550; 85025